=== PATIENT | male | born 1945 | race Caucasian/White ===

== ENCOUNTER 2017-12-29 07:51 | Outpatient (CLI) | payer OTHER ==
[~2017-12-29 07:51] MED LIST: FLEXERIL10 MG PO; LIPO-FLAVONOID1 EACH PO; NABUMETONE750 MG PO; PREDNISONE5 MG/DOSE- PO
== END 2017-12-29 09:08 | disposition home or self-care (01) ==
LOC: LAB 07:51
DX: H52.223 Regular astigmatism, bilateral (principal); H52.4 Presbyopia; F40.9 Phobic anxiety disorder, unspecified; N41.9 Inflammatory disease of prostate, unspecified; E78.9 Disorder of lipoprotein metabolism, unspecified; Z12.11 Encounter for screening for malignant neoplasm of colon

== ENCOUNTER 2017-12-30 10:19 | Outpatient (CLI) | payer OTHER | END 2017-12-30 10:29 | disposition home or self-care (01) | LOC: LAB 10:19 | DX: H52.223 Regular astigmatism, bilateral (principal); H52.4 Presbyopia; F40.8 Other phobic anxiety disorders; E78.89 Other lipoprotein metabolism disorders; N41.8 Other inflammatory diseases of prostate ==

== ENCOUNTER 2018-02-08 08:50 | Outpatient (CLI) | payer OTHER ==
[~2018-02-08] VITALS: Ht 182.9 cm; Wt 72.6 kg
== END 2018-02-08 09:15 | disposition home or self-care (01) ==
LOC: OFIC 805 08:50
DX: R42 Dizziness and giddiness (principal); H90.3 Sensorineural hearing loss, bilateral

== ENCOUNTER 2018-03-23 08:45 | Outpatient (CLI) | payer OTHER | END 2018-03-23 08:55 | disposition home or self-care (01) | LOC: LAB 08:45 | DX: H52.223 Regular astigmatism, bilateral (principal); H52.4 Presbyopia; F40.8 Other phobic anxiety disorders ==

== ENCOUNTER 2018-06-29 08:50 | Outpatient (CLI) | payer OTHER | END 2018-06-29 08:59 | disposition home or self-care (01) | LOC: LAB 08:50 | DX: E78.89 Other lipoprotein metabolism disorders (principal); H52.223 Regular astigmatism, bilateral; H52.4 Presbyopia; M54.5 Low back pain; F40.8 Other phobic anxiety disorders; Z12.11 Encounter for screening for malignant neoplasm of colon ==

== ENCOUNTER 2018-06-29 09:53 | Outpatient (CLI) | payer OTHER | END 2018-06-29 16:51 | disposition home or self-care (01) | LOC: NUCLEAR 09:53 | DX: M81.0 Age-related osteoporosis without current pathological fracture (principal); E78.89 Other lipoprotein metabolism disorders; F40.8 Other phobic anxiety disorders; H52.223 Regular astigmatism, bilateral; H52.4 Presbyopia; M54.5 Low back pain ==

== ENCOUNTER 2018-07-06 10:09 | Outpatient (CLI) | payer OTHER | END 2018-07-06 10:16 | disposition home or self-care (01) | LOC: LAB 10:09 | DX: H52.223 Regular astigmatism, bilateral (principal); H52.4 Presbyopia; M54.5 Low back pain; E78.89 Other lipoprotein metabolism disorders; F40.8 Other phobic anxiety disorders ==

== ENCOUNTER 2018-10-26 08:38 | Outpatient (CLI) | payer OTHER | END 2018-10-26 08:43 | disposition home or self-care (01) | LOC: LAB 08:38 | DX: H52.223 Regular astigmatism, bilateral (principal); H52.4 Presbyopia; M54.5 Low back pain; E78.89 Other lipoprotein metabolism disorders; H90.5 Unspecified sensorineural hearing loss; H90.6 Mixed conductive and sensorineural hearing loss, bilateral; F40.8 Other phobic anxiety disorders ==

== ENCOUNTER 2018-11-07 10:05 | Outpatient (CLI) | payer OTHER | END 2018-11-07 10:15 | disposition home or self-care (01) | LOC: RAD 10:05 | DX: M54.5 Low back pain (principal); H90.5 Unspecified sensorineural hearing loss ==

== ENCOUNTER 2019-01-11 09:35 | Outpatient (CLI) | payer OTHER | END 2019-01-11 10:07 | disposition home or self-care (01) | LOC: LAB 09:35 | DX: M54.5 Low back pain (principal); H90.5 Unspecified sensorineural hearing loss; M62.830 Muscle spasm of back; N41.0 Acute prostatitis; Z12.11 Encounter for screening for malignant neoplasm of colon; E03.8 Other specified hypothyroidism; N40.0 Benign prostatic hyperplasia without lower urinary tract symptoms; E55.9 Vitamin D deficiency, unspecified; M54.89 Other dorsalgia ==

== ENCOUNTER 2019-03-29 08:25 | Outpatient (CLI) | payer OTHER | END 2019-03-29 09:53 | disposition home or self-care (01) | LOC: LAB 08:25 | DX: E46 Unspecified protein-calorie malnutrition (principal); M06.4 Inflammatory polyarthropathy; M54.5 Low back pain; H52.4 Presbyopia ==

== ENCOUNTER → 2019-06-21 08:08 | Outpatient (CLI) | payer OTHER | END | disposition home or self-care (01) | LOC: LAB 08:08 | DX: E46 Unspecified protein-calorie malnutrition (principal); M06.4 Inflammatory polyarthropathy; M54.5 Low back pain; H52.4 Presbyopia; M54.08 Panniculitis affecting regions of neck and back, sacral and sacrococcygeal region; G47.19 Other hypersomnia; H90.3 Sensorineural hearing loss, bilateral; M62.40 Contracture of muscle, unspecified site ==

== ENCOUNTER 2019-09-27 10:46 | Outpatient (CLI) | payer OTHER | END 2019-09-27 10:49 | disposition home or self-care (01) | LOC: RAD 10:46 | DX: M54.5 Low back pain (principal); E46 Unspecified protein-calorie malnutrition; M06.4 Inflammatory polyarthropathy; H52.4 Presbyopia; M54.08 Panniculitis affecting regions of neck and back, sacral and sacrococcygeal region; G47.10 Hypersomnia, unspecified; H90.3 Sensorineural hearing loss, bilateral; M62.40 Contracture of muscle, unspecified site; F41.8 Other specified anxiety disorders; F39 Unspecified mood [affective] disorder; F32.1 Major depressive disorder, single episode, moderate ==

== ENCOUNTER → 2019-10-03 09:06 | Outpatient (CLI) | payer OTHER | END | disposition home or self-care (01) | LOC: LAB 09:06 | DX: F41.8 Other specified anxiety disorders (principal); E46 Unspecified protein-calorie malnutrition; M54.5 Low back pain; H52.4 Presbyopia; M54.08 Panniculitis affecting regions of neck and back, sacral and sacrococcygeal region; G47.10 Hypersomnia, unspecified; H90.3 Sensorineural hearing loss, bilateral; M62.40 Contracture of muscle, unspecified site; F39 Unspecified mood [affective] disorder; F32.1 Major depressive disorder, single episode, moderate; I70.0 Atherosclerosis of aorta; Z68.20 Body mass index [BMI] 20.0-20.9, adult ==

== ENCOUNTER → 2019-12-25 08:46 | Outpatient (CLI) | payer OTHER | END | disposition home or self-care (01) | LOC: LAB 08:46 | DX: M06.4 Inflammatory polyarthropathy (principal); E46 Unspecified protein-calorie malnutrition; M54.5 Low back pain; H52.4 Presbyopia; M54.08 Panniculitis affecting regions of neck and back, sacral and sacrococcygeal region; G47.10 Hypersomnia, unspecified; H90.3 Sensorineural hearing loss, bilateral; M62.40 Contracture of muscle, unspecified site; F41.8 Other specified anxiety disorders; F39 Unspecified mood [affective] disorder; F32.1 Major depressive disorder, single episode, moderate; I70.0 Atherosclerosis of aorta; H04.123 Dry eye syndrome of bilateral lacrimal glands; H43.393 Other vitreous opacities, bilateral; Z68.20 Body mass index [BMI] 20.0-20.9, adult; N41.0 Acute prostatitis; R97.20 Elevated prostate specific antigen [PSA] ==

== ENCOUNTER 2020-03-31 06:18 | Outpatient (CLI) | payer OTHER | END 2020-03-31 06:27 | disposition home or self-care (01) | LOC: LAB 06:18 | DX: M06.4 Inflammatory polyarthropathy (principal); M54.89 Other dorsalgia; H52.4 Presbyopia; M54.08 Panniculitis affecting regions of neck and back, sacral and sacrococcygeal region; G47.10 Hypersomnia, unspecified; H90.3 Sensorineural hearing loss, bilateral; M62.40 Contracture of muscle, unspecified site; F41.8 Other specified anxiety disorders; F39 Unspecified mood [affective] disorder; F32.1 Major depressive disorder, single episode, moderate; I70.0 Atherosclerosis of aorta; H04.123 Dry eye syndrome of bilateral lacrimal glands; E46 Unspecified protein-calorie malnutrition; H43.393 Other vitreous opacities, bilateral; H52.223 Regular astigmatism, bilateral; N20.0 Calculus of kidney; N18.1 Chronic kidney disease, stage 1; R97.20 Elevated prostate specific antigen [PSA]; K58.2 Mixed irritable bowel syndrome; G43.911 Migraine, unspecified, intractable, with status migrainosus; Z68.20 Body mass index [BMI] 20.0-20.9, adult; Z12.11 Encounter for screening for malignant neoplasm of colon ==

== ENCOUNTER 2020-07-01 07:37 | Outpatient (CLI) | payer OTHER | END 2020-07-01 07:41 | disposition home or self-care (01) | LOC: LAB 07:37 | PROVIDERS: ATTEND Internal Medicine | DX: N41.0 Acute prostatitis (principal); N20.0 Calculus of kidney; M06.4 Inflammatory polyarthropathy; F41.8 Other specified anxiety disorders; H04.123 Dry eye syndrome of bilateral lacrimal glands; M54.5 Low back pain; H52.4 Presbyopia; G47.10 Hypersomnia, unspecified; H90.3 Sensorineural hearing loss, bilateral; M62.40 Contracture of muscle, unspecified site; F34.89 Other specified persistent mood disorders; F32.1 Major depressive disorder, single episode, moderate; E46 Unspecified protein-calorie malnutrition; I70.0 Atherosclerosis of aorta; H43.393 Other vitreous opacities, bilateral; H52.223 Regular astigmatism, bilateral; N18.1 Chronic kidney disease, stage 1; R97.20 Elevated prostate specific antigen [PSA]; K58.2 Mixed irritable bowel syndrome; G43.911 Migraine, unspecified, intractable, with status migrainosus; Z68.20 Body mass index [BMI] 20.0-20.9, adult ==

== ENCOUNTER 2020-09-12 08:07 | Outpatient (CLI) | payer OTHER | END 2020-09-12 08:12 | disposition home or self-care (01) | LOC: RAD 08:07 | PROVIDERS: ATTEND Internal Medicine | DX: M62.830 Muscle spasm of back (principal); I70.0 Atherosclerosis of aorta; F41.8 Other specified anxiety disorders; F32.1 Major depressive disorder, single episode, moderate; N41.0 Acute prostatitis; N40.1 Benign prostatic hyperplasia with lower urinary tract symptoms; B35.1 Tinea unguium; B35.6 Tinea cruris ==

== ENCOUNTER 2020-10-03 06:50 | Outpatient (CLI) | payer OTHER | END 2020-10-03 07:00 | disposition home or self-care (01) | LOC: LAB 06:50 | PROVIDERS: ATTEND Internal Medicine | DX: Z12.11 Encounter for screening for malignant neoplasm of colon (principal) ==

== ENCOUNTER → 2021-01-15 07:50 | Outpatient (CLI) | payer OTHER | END | disposition home or self-care (01) | LOC: LAB 07:50 | PROVIDERS: ATTEND Internal Medicine | DX: E78.89 Other lipoprotein metabolism disorders (principal); F41.8 Other specified anxiety disorders; I70.0 Atherosclerosis of aorta; F32.1 Major depressive disorder, single episode, moderate; N41.0 Acute prostatitis; N40.1 Benign prostatic hyperplasia with lower urinary tract symptoms; B35.1 Tinea unguium; B35.6 Tinea cruris; M48.8X2 Other specified spondylopathies, cervical region; M99.01 Segmental and somatic dysfunction of cervical region; M54.5 Low back pain ==

== ENCOUNTER 2021-04-11 07:30 | Outpatient (CLI) | payer OTHER | END 2021-04-11 11:22 | disposition home or self-care (01) | LOC: LAB 07:30 | PROVIDERS: ATTEND Internal Medicine | DX: I70.0 Atherosclerosis of aorta (principal); F41.8 Other specified anxiety disorders; F32.1 Major depressive disorder, single episode, moderate; N41.0 Acute prostatitis; B35.1 Tinea unguium; B35.6 Tinea cruris; M48.8X2 Other specified spondylopathies, cervical region; M99.01 Segmental and somatic dysfunction of cervical region; M54.5 Low back pain; E78.89 Other lipoprotein metabolism disorders; Z12.11 Encounter for screening for malignant neoplasm of colon ==

== ENCOUNTER 2021-07-14 06:42 | Outpatient (CLI) | payer OTHER | END 2021-07-14 06:47 | disposition home or self-care (01) | LOC: LAB 06:42 | PROVIDERS: ATTEND Internal Medicine | DX: I70.0 Atherosclerosis of aorta (principal); F41.8 Other specified anxiety disorders; F32.1 Major depressive disorder, single episode, moderate; N41.0 Acute prostatitis; N40.1 Benign prostatic hyperplasia with lower urinary tract symptoms; B35.1 Tinea unguium; B35.6 Tinea cruris; M48.8X2 Other specified spondylopathies, cervical region; M99.01 Segmental and somatic dysfunction of cervical region; M54.5 Low back pain; E78.89 Other lipoprotein metabolism disorders ==

== ENCOUNTER 2021-09-01 06:27 | Outpatient (CLI) | payer OTHER | END 2021-09-01 06:28 | disposition home or self-care (01) | LOC: LAB 06:27 | PROVIDERS: ATTEND Internal Medicine | DX: I70.0 Atherosclerosis of aorta (principal); F41.8 Other specified anxiety disorders; F32.1 Major depressive disorder, single episode, moderate; N40.1 Benign prostatic hyperplasia with lower urinary tract symptoms; B35.1 Tinea unguium; B35.6 Tinea cruris; M48.8X2 Other specified spondylopathies, cervical region; M99.01 Segmental and somatic dysfunction of cervical region; M54.59 Other low back pain; E78.89 Other lipoprotein metabolism disorders; E55.9 Vitamin D deficiency, unspecified ==

== ENCOUNTER 2021-09-14 08:55 | Emergency (ER) | payer OTHER ==
[~2021-09-14] VITALS: Ht 182.9 cm; Wt 71.2 kg
[2021-09-14] MEDS ORDERED: MULTI VITAMIN1 EACH PO (09:06)
== END 2021-09-14 15:20 | disposition home or self-care (01) ==
LOC: ER 08:55
DX: R10.13 Epigastric pain (principal)

== ENCOUNTER 2021-10-10 10:38 | Emergency (ER) | payer OTHER ==
[~2021-10-10] VITALS: Ht 182.9 cm; Wt 68.0 kg
[~2021-10-10 10:38] MED LIST changes: +MULTI VITAMIN1 EACH PO
== END 2021-10-10 12:23 | disposition home or self-care (01) ==
LOC: ER 10:38
DX: K59.09 Other constipation (principal)

== ENCOUNTER 2021-10-13 07:41 | Outpatient (CLI) | payer OTHER | END 2021-10-13 07:42 | disposition home or self-care (01) | LOC: LAB 07:41 | PROVIDERS: ATTEND Internal Medicine | DX: N40.0 Benign prostatic hyperplasia without lower urinary tract symptoms (principal); N40.1 Benign prostatic hyperplasia with lower urinary tract symptoms; N20.0 Calculus of kidney; I70.0 Atherosclerosis of aorta; F41.8 Other specified anxiety disorders; B35.1 Tinea unguium; B35.6 Tinea cruris; M48.8X2 Other specified spondylopathies, cervical region; M99.01 Segmental and somatic dysfunction of cervical region; M54.59 Other low back pain; E78.89 Other lipoprotein metabolism disorders; E55.9 Vitamin D deficiency, unspecified ==

== ENCOUNTER 2021-11-09 10:28 | Outpatient (CLI) | payer OTHER | END 2021-11-13 11:00 | disposition home or self-care (01) | LOC: RAD 10:28 | PROVIDERS: ATTEND Colon & Rectal Surgery | DX: K59.09 Other constipation (principal) ==

== ENCOUNTER → 2022-01-12 06:43 | Outpatient (CLI) | payer OTHER | END | disposition home or self-care (01) | LOC: LAB 06:43 | PROVIDERS: ATTEND Internal Medicine | DX: I70.0 Atherosclerosis of aorta (principal); F41.9 Anxiety disorder, unspecified; F32.1 Major depressive disorder, single episode, moderate; N41.0 Acute prostatitis; N40.1 Benign prostatic hyperplasia with lower urinary tract symptoms; B35.1 Tinea unguium; B35.6 Tinea cruris; M48.8X2 Other specified spondylopathies, cervical region; M99.01 Segmental and somatic dysfunction of cervical region; M54.50 Low back pain, unspecified; E78.9 Disorder of lipoprotein metabolism, unspecified; E55.9 Vitamin D deficiency, unspecified; N20.0 Calculus of kidney ==

== ENCOUNTER 2022-04-08 09:09 | Outpatient (CLI) | payer OTHER | END 2022-04-08 09:10 | disposition home or self-care (01) | LOC: LAB 09:09 | PROVIDERS: ATTEND Internal Medicine | DX: I70.0 Atherosclerosis of aorta (principal); F41.9 Anxiety disorder, unspecified; F32.1 Major depressive disorder, single episode, moderate; N41.0 Acute prostatitis; N40.1 Benign prostatic hyperplasia with lower urinary tract symptoms; B35.6 Tinea cruris; M48.8X2 Other specified spondylopathies, cervical region; M99.01 Segmental and somatic dysfunction of cervical region; M54.50 Low back pain, unspecified; E78.9 Disorder of lipoprotein metabolism, unspecified; E55.9 Vitamin D deficiency, unspecified; N20.0 Calculus of kidney; K59.09 Other constipation; K59.04 Chronic idiopathic constipation ==

== ENCOUNTER 2022-07-13 07:05 | Outpatient (CLI) | payer OTHER | END 2022-07-13 07:11 | disposition home or self-care (01) | LOC: LAB 07:05 | PROVIDERS: ATTEND Internal Medicine | DX: I70.0 Atherosclerosis of aorta (principal); F41.9 Anxiety disorder, unspecified; F32.1 Major depressive disorder, single episode, moderate; N41.0 Acute prostatitis; N40.1 Benign prostatic hyperplasia with lower urinary tract symptoms; B35.1 Tinea unguium; B35.6 Tinea cruris; M48.8X2 Other specified spondylopathies, cervical region; M99.01 Segmental and somatic dysfunction of cervical region; M54.50 Low back pain, unspecified; E78.9 Disorder of lipoprotein metabolism, unspecified; E55.9 Vitamin D deficiency, unspecified; N20.0 Calculus of kidney; K59.09 Other constipation; K59.04 Chronic idiopathic constipation; Z12.11 Encounter for screening for malignant neoplasm of colon ==

== ENCOUNTER 2022-09-01 06:45 | Outpatient (CLI) | payer OTHER | END 2022-09-01 06:46 | disposition home or self-care (01) | LOC: LAB 06:45 | PROVIDERS: ATTEND Specialist | DX: Z01.812 Encounter for preprocedural laboratory examination (principal); Z01.811 Encounter for preprocedural respiratory examination; K40.90 Unilateral inguinal hernia, without obstruction or gangrene, not specified as recurrent ==

== ENCOUNTER 2022-09-14 06:10 | Day surgery (SDC) | payer OTHER ==
[~2022-09-14 06:10] MED LIST changes: +DOX PO; +LAMOTRIGINE50 MG PO
== END 2022-09-14 16:00 | disposition home or self-care (01) ==
LOC: CIR.AMB 06:10
PROVIDERS: ATTEND Specialist
DX: K40.90 Unilateral inguinal hernia, without obstruction or gangrene, not specified as recurrent (principal); Z71.6 Tobacco abuse counseling; F17.200 Nicotine dependence, unspecified, uncomplicated; Z20.822 Contact with and (suspected) exposure to COVID-19

== ENCOUNTER 2022-11-01 07:08 | Outpatient (CLI) | payer OTHER | END 2022-11-01 07:09 | disposition home or self-care (01) | LOC: LAB 07:08 | PROVIDERS: ATTEND Internal Medicine | DX: I70.0 Atherosclerosis of aorta (principal); F41.9 Anxiety disorder, unspecified; F32.1 Major depressive disorder, single episode, moderate; N41.0 Acute prostatitis; N40.1 Benign prostatic hyperplasia with lower urinary tract symptoms; B35.1 Tinea unguium; B35.6 Tinea cruris; M48.8X2 Other specified spondylopathies, cervical region; M99.01 Segmental and somatic dysfunction of cervical region; M54.50 Low back pain, unspecified; E78.9 Disorder of lipoprotein metabolism, unspecified; E55.9 Vitamin D deficiency, unspecified; N20.0 Calculus of kidney; K59.09 Other constipation; K59.04 Chronic idiopathic constipation ==

== ENCOUNTER → 2023-02-02 09:04 | Outpatient (CLI) | payer OTHER | END | disposition home or self-care (01) | LOC: LAB 09:04 | PROVIDERS: ATTEND Internal Medicine | DX: D64.9 Anemia, unspecified (principal); E11.9 Type 2 diabetes mellitus without complications; N39.0 Urinary tract infection, site not specified; E78.2 Mixed hyperlipidemia ==

== ENCOUNTER 2023-03-31 09:04 | Outpatient (CLI) | payer OTHER | END 2023-03-31 09:05 | disposition home or self-care (01) | LOC: LAB 09:04 | PROVIDERS: ATTEND Internal Medicine | DX: K59.09 Other constipation (principal); E55.9 Vitamin D deficiency, unspecified; N40.1 Benign prostatic hyperplasia with lower urinary tract symptoms; F32.1 Major depressive disorder, single episode, moderate ==

== ENCOUNTER 2023-05-24 06:31 | Outpatient (CLI) | payer OTHER | END 2023-05-24 06:32 | disposition home or self-care (01) | LOC: LAB 06:31 | PROVIDERS: ATTEND Internal Medicine | DX: K59.09 Other constipation (principal); E55.9 Vitamin D deficiency, unspecified; N40.1 Benign prostatic hyperplasia with lower urinary tract symptoms; F32.1 Major depressive disorder, single episode, moderate ==

== ENCOUNTER 2023-12-02 06:32 | Outpatient (CLI) | payer OTHER ==
[2023-12-02 07:11] LABS: URINE APPEARANCE Clear; URINE BILIRRUBIN Negative (NEGATIVE); URINE BLOOD Negative; URINE COLOR Yellow; URINE GLUCOSE Negative (NEGATIVE); URINE LEUKOCYTE Negative; URINE NITRATE Negative; URINE PROTEIN Negative (NEGATIVE); URINE UROBILINOGEN 0.2 E.U./dl
[2023-12-02 07:19] LABS: URINE BACTERIA 0 uL (0.0-1933); URINE EPITHELIAL CELLS 0.3 uL (0.0-38.8); URINE RBC 1.1 uL (0.0-20.8); URINE WBC 0.9 uL (0.0-23.2)
[2023-12-02 07:26] LABS: HEMATOCRIT 40.8 % (39.0-48.0); MEAN CELL VOLUME 93.7 fL (80.0-100.00); MEAN CORPUSCULAR HGB CONC 34.2 g/dl (32.0-36.0); PLATELET COUNT 156 K/uL (150-450); RED BLOOD COUNT 4.36 M/uL (4.00-6.00); RED CELL DISTRIBUTION WIDTH 14.1 % (11.5-14.5)
[2023-12-02 07:59] LABS: ALBUMIN 4.1 gm/dL (3.4-5.0); BILIRUBIN TOTAL 0.61 mg/dL (0.3-1.2); CALCIUM 9.2 mg/dL (8.5-10.1); GFR 72.65; GLOBULINA 3.3 G/DL (2.4-3.5); POTASSIUM 3.66 mEq/L (3.5-5.1); PROSTATIC SPECIFIC ANTIGEN 1.34 NG/ML (0.010-4.00); TOTAL PROTEIN 7.4 gm/dL (6.4-8.2)
== END 2023-12-02 06:34 | disposition home or self-care (01) ==
LOC: LAB 06:32
PROVIDERS: ATTEND Internal Medicine
DX: E55.9 Vitamin D deficiency, unspecified (principal); N40.1 Benign prostatic hyperplasia with lower urinary tract symptoms; F32.1 Major depressive disorder, single episode, moderate

== ENCOUNTER → 2024-03-06 07:00 | Outpatient (CLI) | payer OTHER ==
[2024-03-06 07:59] LABS: HEMOGLOBIN 14.1 g/dL (13-16.00); MEAN CELL VOLUME 95.5 fL (80.0-100.00); MEAN CORPUSCULAR HEMOGLOBIN 32.9 pg (27.00-32.0); MEAN CORPUSCULAR HGB CONC 34.5 g/dl (32.0-36.0); PLATELET COUNT 147 K/uL (150-450); RED BLOOD COUNT 4.29 M/uL (4.00-6.00)
[2024-03-06 08:00] LABS: PH,URINE 5.5 (5.0-8.0); URINE APPEARANCE Turbid; URINE BILIRRUBIN Negative (NEGATIVE); URINE BLOOD Negative; URINE COLOR Yellow; URINE GLUCOSE Negative (NEGATIVE); URINE LEUKOCYTE Negative; URINE NITRATE Negative; URINE PROTEIN Negative (NEGATIVE); URINE UROBILINOGEN 0.2 E.U./dl
[2024-03-06 08:12] LABS: URINE BACTERIA 2.5 uL (0.0-1933); URINE EPITHELIAL CELLS 0.4 uL (0.0-38.8); URINE RBC 0.5 uL (0.0-20.8); URINE WBC 0.1 uL (0.0-23.2)
[2024-03-06 08:47] LABS: ALBUMIN 4.1 gm/dL (3.4-5.0); BILIRUBIN TOTAL 0.92 mg/dL (0.3-1.2); CALCIUM 9.6 mg/dL (8.5-10.1); CHOL HDL RATIO 1.8 (0-5.0); CREATININE SERUM 1.04 mg/dL (0.70-1.30); GFR 69.43; GLOBULINA 3.2 G/DL (2.4-3.5); POTASSIUM 4.11 mEq/L (3.5-5.1); TOTAL PROTEIN 7.3 gm/dL (6.4-8.2)
== END | disposition home or self-care (01) ==
LOC: LAB 07:00
PROVIDERS: ATTEND Internal Medicine
DX: E55.9 Vitamin D deficiency, unspecified (principal); N40.1 Benign prostatic hyperplasia with lower urinary tract symptoms; F32.1 Major depressive disorder, single episode, moderate; E78.9 Disorder of lipoprotein metabolism, unspecified

== ENCOUNTER → 2024-05-29 10:24 | Outpatient (CLI) | payer OTHER | END | disposition home or self-care (01) | LOC: NUCLEAR 10:24 | DX: I87.2 Venous insufficiency (chronic) (peripheral) (principal) ==

== ENCOUNTER 2024-05-30 10:20 | Outpatient (CLI) | payer OTHER | END 2024-05-30 10:21 | disposition home or self-care (01) | LOC: NUCLEAR 10:20 | DX: I70.213 Atherosclerosis of native arteries of extremities with intermittent claudication, bilateral legs (principal) ==

== ENCOUNTER 2024-06-07 07:00 | Outpatient (CLI) | payer OTHER ==
[2024-06-07 07:50] LABS: PH,URINE 5.5 (5.0-8.0); URINE APPEARANCE Clear; URINE BILIRRUBIN Negative (NEGATIVE); URINE BLOOD Negative; URINE COLOR Yellow; URINE GLUCOSE Negative (NEGATIVE); URINE LEUKOCYTE Negative; URINE NITRATE Negative; URINE PROTEIN Negative (NEGATIVE); URINE UROBILINOGEN 0.2 E.U./dl
[2024-06-07 07:53] LABS: URINE EPITHELIAL CELLS 2.6 uL (0.0-38.8); URINE RBC 2.5 uL (0.0-20.8); URINE WBC 3.3 uL (0.0-23.2)
[2024-06-07 07:54] LABS: URINE BACTERIA 2.5 uL (0.0-1933)
[2024-06-07 08:07] LABS: HEMATOCRIT 39.8 % (39.0-48.0); HEMOGLOBIN 13.5 g/dL (13-16.00); MEAN CELL VOLUME 94.7 fL (80.0-100.00); MEAN CORPUSCULAR HEMOGLOBIN 32.1 pg (27.00-32.0); MEAN CORPUSCULAR HGB CONC 33.9 g/dl (32.0-36.0); PLATELET COUNT 143 K/uL (150-450); RED CELL DISTRIBUTION WIDTH 13.3 % (11.5-14.5)
[2024-06-07 08:13] LABS: ob NEGATIVE (NEGATIVE)
[2024-06-07 09:08] LABS: ALBUMIN 4.1 gm/dL (3.4-5.0); BILIRUBIN TOTAL 0.71 mg/dL (0.3-1.2); CALCIUM 9.4 mg/dL (8.5-10.1); CREATININE SERUM 0.97 mg/dL (0.70-1.30); GFR 75.25; GLOBULINA 3.5 G/DL (2.4-3.5); POTASSIUM 3.7 mEq/L (3.5-5.1); TOTAL PROTEIN 7.6 gm/dL (6.4-8.2)
== END 2024-06-07 07:01 | disposition home or self-care (01) ==
LOC: LAB 07:00
PROVIDERS: ATTEND Internal Medicine
DX: E55.9 Vitamin D deficiency, unspecified (principal); N40.1 Benign prostatic hyperplasia with lower urinary tract symptoms; F32.1 Major depressive disorder, single episode, moderate

== ENCOUNTER → 2024-07-06 10:06 | Outpatient (CLI) | payer OTHER ==
[2024-07-06 11:06] LABS: CREATININE SERUM 1.05 mg/dL (0.70-1.30)
== END | disposition home or self-care (01) ==
LOC: LAB 10:06
PROVIDERS: ATTEND Radiology Diagnostic Radiology
DX: R22.0 Localized swelling, mass and lump, head (principal)

== ENCOUNTER 2024-07-16 07:09 | Outpatient (CLI) | payer OTHER | END 2024-07-16 07:13 | disposition home or self-care (01) | LOC: TOM 07:09 | DX: R22.0 Localized swelling, mass and lump, head (principal) | CPT/HCPCS: 70491; Q9965 ==

== ENCOUNTER 2024-09-25 06:54 | Outpatient (CLI) | payer OTHER ==
[2024-09-25 07:26] LABS: HEMATOCRIT 40.2 % (39.0-48.0); HEMOGLOBIN 13.5 g/dL (13-16.00); MEAN CELL VOLUME 97.7 fL (80.0-100.00); MEAN CORPUSCULAR HEMOGLOBIN 32.8 pg (27.00-32.0); MEAN CORPUSCULAR HGB CONC 33.5 g/dl (32.0-36.0); PLATELET COUNT 161 K/uL (150-450); RED BLOOD COUNT 4.12 M/uL (4.00-6.00); RED CELL DISTRIBUTION WIDTH 14.7 % (11.5-14.5)
[2024-09-25 07:42] LABS: PH,URINE 5.5 (5.0-8.0); URINE APPEARANCE Clear; URINE BILIRRUBIN Negative (NEGATIVE); URINE BLOOD Negative; URINE COLOR Yellow; URINE GLUCOSE Negative (NEGATIVE); URINE KETONE Trace (NEGATIVE); URINE LEUKOCYTE Negative; URINE NITRATE Negative; URINE PROTEIN Negative (NEGATIVE); URINE UROBILINOGEN 0.2 E.U./dl
[2024-09-25 07:46] LABS: URINE RBC 5.3 uL (0.0-20.8); URINE WBC 2.7 uL (0.0-23.2)
[2024-09-25 08:09] LABS: URINE CAST 0.15 uL (0.0-1.40); URINE EPITHELIAL CELLS 0.9 uL (0.0-38.8)
[2024-09-25 08:20] LABS: CALCIUM 9.1 mg/dL (8.5-10.1); CREATININE SERUM 0.98 mg/dL (0.70-1.30); GFR 74.16; PROSTATIC SPECIFIC ANTIGEN 1.18 NG/ML (0.010-4.00)
== END 2024-09-25 07:00 | disposition home or self-care (01) ==
LOC: LAB 06:54
DX: E55.9 Vitamin D deficiency, unspecified (principal); N40.1 Benign prostatic hyperplasia with lower urinary tract symptoms; F32.1 Major depressive disorder, single episode, moderate

== ENCOUNTER → 2024-12-20 06:05 | Outpatient (CLI) | payer OTHER ==
[2024-12-20 07:21] LABS: HEMOGLOBIN 14.1 g/dL (13-16.00); MEAN CELL VOLUME 96.5 fL (80.0-100.00); MEAN CORPUSCULAR HEMOGLOBIN 32.3 pg (27.00-32.0); MEAN CORPUSCULAR HGB CONC 33.5 g/dl (32.0-36.0); PLATELET COUNT 168 K/uL (150-450); RED BLOOD COUNT 4.36 M/uL (4.00-6.00); RED CELL DISTRIBUTION WIDTH 14.2 % (11.5-14.5)
[2024-12-20 07:44] LABS: PH,URINE 5.5 (5.0-8.0); URINE APPEARANCE Clear; URINE BILIRRUBIN Negative (NEGATIVE); URINE BLOOD Negative; URINE COLOR Yellow; URINE GLUCOSE Negative (NEGATIVE); URINE KETONE Negative (NEGATIVE); URINE LEUKOCYTE Negative; URINE NITRATE Negative; URINE PROTEIN Negative (NEGATIVE)
[2024-12-20 07:48] LABS: URINE RBC 4.4 uL (0.0-20.8)
[2024-12-20 07:52] LABS: URINE BACTERIA 3.6 uL (0.0-1933); URINE CAST 0.14 uL (0.0-1.40); URINE WBC 1.7 uL (0.0-23.2)
[2024-12-20 08:16] LABS: ALBUMIN 3.8 gm/dL (3.4-5.0); BILIRUBIN TOTAL 0.71 mg/dL (0.3-1.2); CALCIUM 9.3 mg/dL (8.5-10.1); CHOL HDL RATIO 1.9 (0-5.0); CREATININE SERUM 1.01 mg/dL (0.70-1.30); GFR 71.63; GLOBULINA 3.3 G/DL (2.4-3.5); POTASSIUM 4.35 mEq/L (3.5-5.1); PROSTATIC SPECIFIC ANTIGEN 1.26 NG/ML (0.010-4.00); TOTAL PROTEIN 7.1 gm/dL (6.4-8.2)
[2024-12-20 09:41] LABS: ob NEGATIVE (NEGATIVE)
== END | disposition home or self-care (01) ==
LOC: LAB 06:05
PROVIDERS: ATTEND Internal Medicine
DX: E55.9 Vitamin D deficiency, unspecified (principal); N40.1 Benign prostatic hyperplasia with lower urinary tract symptoms; F32.1 Major depressive disorder, single episode, moderate; Z12.11 Encounter for screening for malignant neoplasm of colon

== ENCOUNTER 2024-12-20 08:59 | Outpatient (CLI) | payer OTHER | END 2024-12-20 09:10 | disposition home or self-care (01) | LOC: MRI 08:59 | DX: M54.16 Radiculopathy, lumbar region (principal); M54.14 Radiculopathy, thoracic region; M54.12 Radiculopathy, cervical region | CPT/HCPCS: 72146; 72148 ==

== ENCOUNTER 2025-05-09 06:20 | Emergency (ER) | payer OTHER ==
[~2025-05-09] VITALS: Ht 182.9 cm; Wt 65.8 kg
[2025-05-09 06:35] VITALS: BP 127/45; O2SAT 100
[2025-05-09] MEDS ORDERED: HYOSCYAMINE SULFATE 0.125 MG TAB.SUBL ONE (07:27)
[2025-05-09] MEDS ORDERED: HYOSCYAMINE SULFATE 0.125 MG TAB.SUBL SL ONE (07:30)
[2025-05-09 07:52] LABS: BASO % 1.1 % (0.1-1.2); EOS # 0.16 (0.04-0.54); EOS % 2.5 % (0.7-7.0); HEMATOCRIT 41.8 % (40.1-51.0); LYMPH # 1.82 (1.18-3.74); LYMPH % 28.7 % (19.3-53.1); MEAN CORPUSCULAR HEMOGLOBIN 32.2 pg (25.6-32.2); MONO # 0.63 (0.24-0.82); MONO % 9.9 % (4.7-12.5); NEUT # 3.66 (1.56-6.13); NEUT % 57.6 % (34.0-71.1); PLATELET COUNT 165 K/uL (163-369); RED BLOOD COUNT 4.35 M/uL (4.63-6.08); RED CELL DISTRIBUTION WIDTH 13.5 % (11.6-14.4)
[2025-05-09 08:14] LABS: ALBUMIN 3.8 gm/dL (3.4-5.0); BILIRUBIN TOTAL 0.73 mg/dL (0.3-1.2); CALCIUM 9.3 mg/dL (8.5-10.1); CREATININE SERUM 0.91 mg/dL (0.70-1.30); GFR 80.79; GLOBULINA 3.6 G/DL (2.4-3.5); POTASSIUM 3.95 mEq/L (3.5-5.1); TOTAL PROTEIN 7.4 gm/dL (6.4-8.2)
[2025-05-09 08:29] LABS: PH,URINE 6.5 (5.0-8.0); URINE APPEARANCE Clear; URINE BILIRRUBIN Negative (NEGATIVE); URINE BLOOD Negative; URINE COLOR Yellow; URINE GLUCOSE Negative (NEGATIVE); URINE KETONE Negative (NEGATIVE); URINE LEUKOCYTE Negative; URINE NITRATE Negative; URINE PROTEIN Negative (NEGATIVE)
[2025-05-09 08:33] LABS: URINE EPITHELIAL CELLS 1.5 uL (0.0-38.8); URINE RBC 3.8 uL (0.0-20.8); URINE WBC 24.9 uL (0.0-23.2)
[2025-05-09 08:40] LABS: URINE BACTERIA 0 uL (0.0-1933)
[2025-05-09] MEDS ORDERED: LACTULOSE 20 G/30 ML BLIST.PACK PO ONE (10:00)
[2025-05-09] MEDS ORDERED: LACTULOSE 20 G/30 ML BLIST.PACK ONE (10:11)
== END 2025-05-09 11:30 | disposition home or self-care (01) ==
LOC: ER 06:26
PROVIDERS: General Practice
DX: K59.00 Constipation, unspecified (principal)

== ENCOUNTER 2025-07-12 07:05 | Outpatient (CLI) | payer OTHER | END 2025-07-12 07:09 | disposition home or self-care (01) | LOC: TOM 07:05 | DX: R10.9 Unspecified abdominal pain (principal) | CPT/HCPCS: 74178; Q9965 ==

== ENCOUNTER → 2025-09-12 | Outpatient (CLI) | payer OTHER | END | disposition home or self-care (01) | LOC: MRI 10:55 | PROVIDERS: ATTEND Physical Medicine & Rehabilitation | DX: M54.6 Pain in thoracic spine (principal) | CPT/HCPCS: 72146 ==

== ENCOUNTER → 2025-10-14 | Outpatient (CLI) | payer OTHER | END | disposition home or self-care (01) | LOC: RAD 09:38 | PROVIDERS: ATTEND Internal Medicine | DX: E55.9 Vitamin D deficiency, unspecified (principal); F32.1 Major depressive disorder, single episode, moderate; E78.9 Disorder of lipoprotein metabolism, unspecified; I70.0 Atherosclerosis of aorta; M54.14 Radiculopathy, thoracic region; M54.6 Pain in thoracic spine; M47.814 Spondylosis without myelopathy or radiculopathy, thoracic region ==